=== PATIENT | male | born 1960 | race Asian ===

== ENCOUNTER 2024-04-29 22:14 | Emergency (ER) | payer OTHER ==
[2024-04-29 22:24] VITALS: BMI 25.7
[2024-04-29 22:50] LABS: BASO % 1.2 % (0-2.0); EOS % 5.9 % (0-4.5); HEMATOCRIT 41.9 % (35.4-49); HEMOGLOBIN 14.4 GM/dL (11.7-16.9); LYMPH % 31.6 % (8-40); MCH 30.7 pg (25.7-33.7); MCHC 34.3 g/dl (32.0-35.9); MEAN CELL VOLUME 89.6 fl (80-96); MEAN PLT VOLUME 8.1 fl (7.5-11.1); MONO % 10.1 % (3.8-10.2); NEUT % 51.2 % (42.8-82.8); PLATELET COUNT 219 10^3/uL (134-434); RBC 4.68 M/mm3 (4.00-5.60); RDW 13.2 % (11.9-15.9); WHITE BLOOD COUNT 6.4 K/mm3 (4.0-10.0)
[2024-04-29 23:03] LABS: INR 0.95 (0.83-1.09); PROTHROMBIN TIME (PATIENT) 10.9 SEC (9.7-13.0)
[2024-04-29 23:05] LABS: ACTIVATED PTT 31.8 SECONDS (25.2-36.5)
[2024-04-29 23:13] LABS: POTASSIUM 3.9 mmol/L (3.5-5.1)
[2024-04-29 23:14] LABS: CALCIUM 9.1 mg/dL (8.5-10.1)
[2024-04-29 23:15] LABS: ALBUMIN 3.7 g/dl (3.4-5.0); BLOOD UREA NITROGEN 10.8 mg/dL (7-18); MAGNESIUM 2.2 mg/dL (1.8-2.4)
[2024-04-29 23:19] LABS: CREATININE 0.8 mg/dL (0.55-1.3)
[2024-04-29 23:20] LABS: BILIRUBIN,TOTAL 0.4 mg/dL (0.2-1); TOT PROT 7.1 g/dl (6.4-8.2)
[2024-04-29] MEDS ORDERED: LIDOCAINE 5% TOPICAL PATCH ONE (23:36)
[2024-04-29] MEDS ORDERED: METHOCARBAMOL 500 MG TABLET ONE (23:36)
[2024-04-29] MEDS ORDERED: ACETAMINOPHEN INJECTION 100 ML ONE (23:36)
[2024-04-29] MEDS ORDERED: KETOROLAC TROMETHAMINE 15 MG/ML VIAL ONE (23:36)
[2024-04-29] MEDS: KETOROLAC TROMETHAMINE 15 MG/ML VIAL IVPUSH ONE (23:46)
[2024-04-29] MEDS: METHOCARBAMOL 500 MG TABLET PO ONE (23:46)
[2024-04-30] MEDS: LIDOCAINE 5% TOPICAL PATCH TP ONE (00:17)
[2024-04-30] MEDS: ACETAMINOPHEN 1000 MG/100 ML BAG IVPB ONE (00:17)
[2024-04-30] MEDS: LIDOCAINE PATCH REMOVAL MC SCH (00:17)
[2024-04-30 00:44] VITALS: BP 158/85; RESP 16
[2024-04-30 00:46] VITALS: PULSE 67
[2024-04-30 00:49] VITALS: TEMP 98.3
== END 2024-04-30 01:46 | disposition home or self-care (01) ==
LOC: JER 22:14
PROC: 3E033NZ Introduction of Analgesics, Hypnotics, Sedatives into Peripheral Vein, Percutaneous Approach (ICD-10-PCS; principal; 2024-04-29)
PROC: 3E0333Z Introduction of Anti-inflammatory into Peripheral Vein, Percutaneous Approach (ICD-10-PCS; 2024-04-29)
DX: R07.89 Other chest pain (principal); M54.2 Cervicalgia; I10 Essential (primary) hypertension; Z20.822 Contact with and (suspected) exposure to COVID-19
CPT/HCPCS: 0241U-QW; 36415; 71045-TC-FY; 80053; 83735; 84484; 85025; 85610; 85730; 93005; 93010; 99285-25; J0131